=== PATIENT | male | born 1975 | race Two or more races ===

== ENCOUNTER 2016-09-18 23:53 | Emergency (ER) | payer OTHER ==
[2016-09-19] VITALS: RESP 16
--- NOTE | 2016-09-19 00:18 | CPEKG ---
Heart Rate: 61 RR Interval: 984 P-R Interval: 176 QRSD Interval: 96 QT Interval: 420 QTC Interval: 423 P [place]: 64 QRS [place]: 46 T Wave [place]: 26 EKG Severity - NORMAL ECG - EKG Impression: SINUS RHYTHM Electronically Signed By: Brenda Celis 19-Sep-2016 06:21:48
[2016-09-19 00:36] LABS: % IMMATURE GRANULYOCYTES 0.2 % (0.0-1.1); ABSOLUTE IMMATURE GRANULOCYTES 0.02 10^3/uL (0.00-0.10); ADD DIFF? NO; ADD MORPH? NO; ADD SCAN? NO; ATYPICAL LYMPHOCYTE FLAG 10 (0-99); FRAGMENT RBC FLAG 0 (0-99); HEMATOCRIT 46.6 % (40.0-51.0); HEMOGLOBIN 16.1 g/dL (13.7-17.5); LEFT SHIFT FLG 0 (0-99); LIPEMIA HEMOLYSIS FLAG 90 (0-99); MEAN CELL HEMOGLOBIN 32.4 pg (27.9-34.1); MEAN CELL HEMOGLOBIN CONCENTR. 34.5 g/dL (32.4-36.7); MEAN CELL VOLUME 93.8 fL (81.5-99.8); MEAN PLATELET VOLUME 11.4 fL (8.7-11.7); PLATELET CLUMPS FLAG 10 (0-99); PLATELET COUNT 216 10^3/uL (150-400); RED BLOOD CELL COUNT 4.97 10^6/uL (4.40-6.38); RED CELL DISTRIBUTION WIDTH 13.1 % (11.5-15.2)
[2016-09-19 00:49] LABS: ANION GAP 11 mEq/L (8-16); CALCIUM 9.7 mg/dL (8.5-10.4); CARBON DIOXIDE 27 mEq/l (22-31); CHLORIDE 107 mEq/L (97-110); CREATININE 1.1 mg/dL (0.7-1.3); GLOMERULAR FILTRATION RATE > 60; GLUCOSE 88 mg/dL (70-100); POTASSIUM 3.9 mEq/L (3.5-5.2); SODIUM 145 mEq/L (134-144)
[2016-09-19 01:02] LABS: TROPONIN I < 0.012 ng/mL (0-0.034)
--- NOTE | 2016-09-19 01:40 | EDPHY ---
H & P Stated Complaint: sub sternal CP began at 2100 while working on the computer Time Seen by Provider: 09/19/16 01:26 HPI/ROS: HPI The patient presents with Chest pain which began this evening about 4 hours ago while he was sitting at his desk doing work on his computer. The pain was near his sternum, sharp in nature, did not radiate, was not associated with any shortness of breath, nausea, vomiting, diaphoresis. He has no prior history of similar. About 2 weeks ago he had a URI type illness which is now resolved. He does not have any cough or fever currently. He has no prior history of similar pain.. REVIEW OF SYSTEMS Constitutional: No fever, no chills. Eyes: No discharge. ENT: No sore throat. Cardiovascular: Positive for chest pain, no palpitations. Respiratory: No cough, no shortness of breath. Gastrointestinal: No abdominal pain, no vomiting. Genitourinary: No hematuria. Musculoskeletal: No back pain. Skin: No rashes. Neurological: No headache. PMHx: no diabetes, no hypertension Soc Hx: nonsmoker FHx: father with a AAA PHYSICAL General Appearance: [Alert, no distress] Eyes: [Pupils equal and round no pallor or injection] ENT, Mouth: [Mucous membranes moist] Respiratory: [There are no retractions, lungs are clear to auscultation] Cardiovascular: [ Regular rate and rhythm, tender minimally over his sternum ] Gastrointestinal: [ Abdomen is soft and non-tender, no masses, bowel sounds normal ] Neurological: [ A&O, moves all extremities] Skin: [ Warm and dry, no rashes] Musculoskeletal: [Neck is supple non tender ] Extremities: [symmetrical, full range of motion ] Psychiatric: [ Patient is oriented X 3, there is no agitation ] Source: Patient Exam Limitations: No limitations - Personal History Current Tetanus/Diphtheria Vaccine: Yes Current Tetanus Diphtheria and Acellular Pertussis (TDAP): Yes Tetanus Vaccine Date: less than 5 years - Medical/Surgical History Hx Asthma: No Hx Chronic Respiratory Disease: No Hx Diabetes: No Hx Cardiac Disease: No Hx Renal Disease: No Hx Cirrhosis: No Hx Alcoholism: Yes Hx HIV/AIDS: No Hx Splenectomy or Spleen Trauma: No Other PMH: anxiety, analphylaxsis. no PSH - Social History Smoking Status: Former smoker Constitutional: Initial Vital Signs Temperature (C) 36.6 C 09/18/16 23:58 Heart Rate 70 09/18/16 23:58 Respiratory Rate 16 09/18/16 23:58 Blood Pressure 153/100 H 09/18/16 23:58 O2 Sat (%) 100 09/18/16 23:58 O2 Delivery Mode Room Air Allergies/Adverse Reactions: No Known Allergies Allergy (Unverified 09/18/16 23:58) Home Medications: Medication Instructions Recorded NK [No Known Home Meds] 09/18/16 Medical Decision Making - Diagnostics EKG Interpretation: EKG: Complete interpretation has been separately recorded in the [email or web address] archive. Summary impression: Normal sinus rhythm Imaging: chest x-ray two view shows no infiltrate, no pneumothorax, interpreted by me, radiology interpretation is pending. Differential Diagnosis: This is a 40-year-old male who is healthy who presents with an episode of chest pain which is now resolved. The pain occurred at rest, which sharp in nature, overlying his sternum. I feel costochondritis is the most likely, especially given recent viral illness. Differential diagnoses considered include pneumothorax, pulmonary contusion, ACS. in the ER, basic labs were performed, EKG and chest x-ray were also done and were all unremarkable. I have discussed the diagnosis of costochondritis with the patient. I have encouraged anti-inflammatory medications. I will refer him to a primary care doctor, as he does not see anyone currently. - Data Points Laboratory Results: Laboratory Results 09/19/16 00:20 09/19/16 00:20 Departure - Departure Disposition: Home, Routine, Self-Care Clinical Impression: Costochondritis, acute Chest pain Qualifiers: Chest pain type: unspecified Qualified Code(s): R07.9 - Chest pain, unspecified Condition: Good Instructions: Costochondritis (ED) Additional Instructions: Please take anti-inflammatory medications for the next 1 week, you can take ibuprofen, Naprosyn, or aspirin. If your pain continues, you should follow up with a primary care provider. I have given you name of someone you can see. Please return to the emergency room if your worse in any way. Referrals: Faisal May MD [Medical Doctor] - As per Instructions
[2016-09-19 01:49] VITALS: BP 120/86; PULSE 78; TEMP 98.2; O2SAT 97
== END 2016-09-19 01:49 | disposition home or self-care (01) ==
DX: M94.0 Chondrocostal junction syndrome [Tietze] (principal); Z87.891 Personal history of nicotine dependence